=== PATIENT | female | born 1970 | race Caucasian/White ===

== ENCOUNTER 2020-09-25 21:10 | Emergency (ER) | payer MEDICAID, SELFPAY ==
[~2020-09-25] VITALS: Ht 162.6 cm; Wt 78.0 kg
[2020-09-25 22:01] VITALS: BP 116/78
[2020-09-25] MEDS ORDERED: IBUPROFEN 200 MG TABLET PO ONE (22:30)
[2020-09-25] MEDS ORDERED: IBUPROFEN 600 MG TABLET ONE (22:52)
--- NOTE | 2020-09-25 23:03 | NUR ---
belongings left by pt in room given to security.
== END 2020-09-25 23:05 ==
LOC: ED 21:40
DX: F15.151 Other stimulant abuse with stimulant-induced psychotic disorder with hallucinations (principal); F14.10 Cocaine abuse, uncomplicated; F10.10 Alcohol abuse, uncomplicated; R44.0 Auditory hallucinations; F17.210 Nicotine dependence, cigarettes, uncomplicated; Z72.9 Problem related to lifestyle, unspecified; Y90.0 Blood alcohol level of less than 20 mg/100 ml
CPT/HCPCS: 99282